=== PATIENT | male | born 2000 | race African-American/Black ===

== ENCOUNTER 2019-03-02 13:43 | Emergency (ER) | payer SELFPAY ==
[~2019-03-02] VITALS: Ht 172.7 cm; Wt 85.7 kg
--- OUTSIDE RECORDS SUMMARY | 2019-03-02 13:46 | XMS REPORT | Clinical Summary ---
Author Author [facility] Organization [facility] Address Unknown Phone Unavailable Care Team Providers Care Office Machine Installer Name Role Phone Asked, No Pcp PCP Unavailable Allergies No Known Allergies Medications End Date Status Medication Sig Dispensed Refills Start Date Active ibuprofen (ADVIL,MOTRIN) Take 1 tablet 20 tablet 0 600 MG tablet (600 mg 9 total) by mouth every 6 (six) hours as needed for mild pain. 11/07/2018 Discontinued divalproex (DEPAKOTE) 500 Take 1,500 mg 0 MG EC tablet by mouth 2 (two) times a day. 11/17/2018 divalproex (DEPAKOTE) 500 Take 3 60 tablet 0 MG EC tablet tablets 9 (1,500 mg total) by mouth 2 (two) times a day for 10 days. Active Problems Not on file Encounters Care Team Description Date Type Specialty Ok Iglesias, Marcell Montes MD Seizure (HCC) (Primary Dx) 11/07/2018 Emergency Emergency Medicine Josh Murray MD Acute bilateral low back pain without sciatica (Primary Dx) 10/17/2018 Emergency Emergency Medicine after 03/01/2018 Social History Date Tobacco Use Types Packs/Day Years Used Current Every Day Smoker Smokeless Tobacco: Never Used Drinks/Week oz/Week Comments Alcohol Use Yes Sex Assigned at Date Recorded Not on file Industry Job Start Date Occupation Not on file Not on file Not on file Travel End Travel History Travel Start No recent travel history available. Last Filed Vital Signs Reading Time Taken Comments Vital Sign 135/70 11/07/2018 8:30 PM CDT Blood Pressure 62 11/07/2018 8:30 PM CDT Pulse 36.7 C (98.1 F) 11/07/2018 6:20 PM CDT Temperature 20 11/07/2018 8:30 PM CDT Respiratory Rate 99% 11/07/2018 8:30 PM CDT Oxygen Saturation - - Inhaled Oxygen Concentration 86.2 kg (190 lb) 10/17/2018 1:28 PM CDT Weight 175.3 cm (5' 9") 11/07/2018 4:55 PM CDT Height 28.06 10/17/2018 1:28 PM CDT Body Mass Index Plan of Treatment Health Maintenance Due Date Last Done Comments INFLUENZA VACCINE 02/01/2019 Procedures Comments Procedure Name Priority Date/Time Associated Diagnosis ECG ED PRELIMINARY Routine 11/07/2018 INTERPRETATION 8:58 PM CDT URINE DRUGS OF ABUSE STAT 11/07/2018 SCREEN 6:38 PM CDT URINALYSIS SCREEN AND STAT 11/07/2018 MICROSCOPY, WITH REFLEX 6:38 PM CDT TO CULTURE URINE CULTURE STAT 11/07/2018 6:38 PM CDT POC GLUCOSE Routine 11/07/2018 5:38 PM CDT ECG 12-LEAD STAT 11/07/2018 5:33 PM CDT ESTIMATED GFR STAT 11/07/2018 5:30 PM CDT CREATINE KINASE, TOTAL STAT 11/07/2018 (CPK) 5:30 PM CDT ALCOHOL LEVEL, BLOOD STAT 11/07/2018 5:30 PM CDT COMPREHENSIVE METABOLIC STAT 11/07/2018 PANEL 5:30 PM CDT HC COMPLETE BLD COUNT STAT 11/07/2018 W/AUTO DIFF 5:30 PM CDT VALPROIC ACID LEVEL STAT 11/07/2018 5:[address] CERVICAL SPINE WO STAT 11/07/2018 CONTRAST 5:[address] HEAD WO CONTRAST STAT 11/07/2018 5:[address] THORACIC SPINE WO STAT 10/17/2018 CONTRAST 3:[address] LUMBAR SPINE WO STAT 10/17/2018 CONTRAST 3:37 PM CDT GRAM STAIN Routine 10/17/2018 3:32 PM CDT URINE CULTURE Routine 10/17/2018 3:32 PM CDT URINALYSIS SCREEN AND Routine 10/17/2018 MICROSCOPY, WITH REFLEX 2:42 PM CDT TO CULTURE XR LUMBAR SPINE 2 OR 3 VW STAT 10/17/2018 2:10 PM CDT after 03/01/2018 Results * ECG ED Preliminary Interpretation - Not an Order (11/07/2018 8:58 PM CDT) Narrative Performed At Ok Iglesias NP-C 11/09/2018 12:56 AM ECG ED Preliminary Interpretation - Not an Order Performed by: Ok Iglesias NP-C Authorized by: Ok Iglesias NP-C ECG reviewed by ED Physician in the absence of a hairspring setter: yes Interpretation: Interpretation: non-specific Rate: ECG rate:62 ECG rate assessment: normal Rhythm: Rhythm: sinus rhythm Rhythm comment:With sinus arrhythmia Ectopy: Ectopy: none QRS: QRS axis:Left QRS intervals:Normal ST segments: ST segments:Normal T waves: T waves: normal * Urinalysis screen and microscopy, with reflex to culture (11/07/2018 6:38 PM CDT) Only the most recent of 2 results within the time period is included. Specimen site Clean catch [facility] Color, UA Straw [facility] Appearance, UA Clear [facility] Specific 1.006 1.001 - 1.035 [place] gravity, [facility] pH, UA 8.0 5.0 - 8.5 [facility] Protein, UA Negative Negative [facility] Glucose, UA Negative Negative [facility] Ketones, UA Trace (A) Negative [facility] Bilirubin, UA Negative Negative [facility] Blood, UA Negative Negative [facility] Nitrite, UA Negative Negative [facility] Urobilinogen, Negative <2.0 [facility] Leukocyte Negative Negative [place] esterase, UA [facility] Epithelial None seen /HPF [place] cells, UA [facility] WBC, UA 0-5 0 - 1 /HPF [facility] RBC, UA 0-5 0 - 5 /HPF [facility] Bacteria, UA None seen None seen [facility] Yeast, UA None seen [facility] Yeast with None seen [place] [facility]phae[facility] Specimen Urine Performing Organization Address City/[facility] Phone Number [facility] [place] [id number] [place] [address] [place] [address] PATHOLOGY AND GENOMIC MEDICINE [address] [place] [address] [facility] * Urine drugs of abuse screen (11/07/2018 6:38 PM CDT) Amphetamine Negative [facility] screen, urine [facility] Methamphetamine Negative [place] screen, urine [facility] Barbiturate Negative [facility] screen, urine [facility] Benzodiazepine Negative [facility] screen, urine [facility] Cocaine screen, Negative [place] urine [facility] Methadone Negative [place] screen, urine [facility] Opiates screen, Negative [facility] urine [facility] Phencyclidine Negative [place] screen, urine [facility] Cannabinoid Positive (A) TORRE screen, urine [facility] Tricyclic Negative [place] screen, urine Comment: [facility] Drug screen minimum [facility] concentration of detectability Amphetamines 1000 ng/mL Methamphetamines 1000 ng/mL Barbiturates 300 ng/mL Benzodiazepines 300 ng/mL Cocaine 300 ng/mL Methadone 300 ng/mL Opiates 300 ng/mL Phencyclidine 25 ng/mL Cannabinoids 50 ng/mL Tricyclics 1000 ng/mL Negative test results indicates presumptive evidence of lack of clinically significant drug concentration in this urine specimen. Positive test results are presumptive evidence of clinically significant drug concentration in this urine specimen. Testing performed for medical purposes only. Specimen Urine Performing Organization Address City/[facility]/Zipcode Phone Number [facility] DEPARTMENT [address] [place] [address] PATHOLOGY AND GENOMIC MEDICINE [address] * Urine culture (11/07/2018 6:38 PM CDT) Only the most recent of 2 results within the time period is included. [facility] Urine culture SEE COMMENTComment: [facility] Bacteriuria screen negative. [facility] Specimen Urine Performing Organization Address [facility] Phone Number [facility] DEPARTMENT [address] [place] [address] PATHOLOGY AND GENOMIC MEDICINE [address] * POC glucose (11/07/2018 5:38 PM CDT) [facility] POC glucose 85 65 - 99 mg/dL [place] Comment: [facility] Meter ID: [id number] [facility] Recorder [employer] Prospecting: Beti Hagen Specimen Performing Organization Address [facility] Phone Number [facility] DEPARTMENT [address] [place] [address] PATHOLOGY AND GENOMIC MEDICINE [address] * ECG 12 lead (11/07/2018 5:33 PM CDT) [facility] Ventricular 62 [facility] rate Atrial rate 62 [facility] WI interval 152 [facility] QRSD interval 106 [facility] QT interval 416 [facility] QTC interval 422 [facility] P axis 1 56 [facility] QRS axis 1 -40 [facility] T wave axis 10 [facility] EKG impression Sinus rhythm with marked sinus [facility] MUSE arrhythmia-Left axis deviation-Abnormal ECG-In automated comparison with ECG of 07-NOV-2017 21:47,-Vent. rate has decreased BY 34 BPM- Specimen Narrative Performed At Performing Organization Address City/[facility] Phone Number [facility] MUSE [address] [place] [address] * Estimated GFR (11/07/2018 5:30 PM CDT) [facility] Estimated GFR >=90 mL/min/1.73 m2 [facility] Comment: [facility] rpretation G1 >=90 Normal or high G2 60-89Mildly decreased [id number] Mildly to moderately decreased [id number] Moderately to severely decreased G4 15-29Severely decreased G5 <15Kidney failure The eGFR was calculated using the Chronic Kidney Disease Epidemiology Collaboration (CKD-EPI) equation. Interpretation is based on recommendations of the National Kidney Foundation-Kidney Disease Outcomes Quality Initiative (NKF-KDOQI) published in 2014. Specimen Plasma specimen Performing Organization Address City/State/Zipcode Phone Number [facility] [id number] [place] [address] [place] [address] PATHOLOGY AND GENOMIC MEDICINE [facility] [id number] [place] [address] [place] [address] [facility] * CBC with platelet and differential (11/07/2018 5:30 PM CDT) [facility] WBC 8.38 4.50 - 11.00 k/uL [facility] RBC 5.22 4.40 - 6.00 m/uL [facility] HGB 15.2 14.0 - 18.0 g/dL [facility] HCT 45.6 41.0 - 51.0 % [facility] MCV 87.4 82.0 - 100.0 fL [facility] MCH 29.1 27.0 - 34.0 pg [facility] MCHC 33.3 31.0 - 37.0 g/dL [facility] RDW - SD 42.5 37.0 - 55.0 fL [facility] MPV 9.9 8.8 - 13.2 fL [facility] Platelet count 333 150 - 400 k/uL [facility] Nucleated RBC 0.00 /100 WBC [facility] Neutrophils 71.8 (H) 39.0 - 69.0 % [facility] Lymphocytes 21.7 (L) 25.0 - 45.0 % [facility] Monocytes 4.4 0.0 - 10.0 % [facility] Eosinophils 1.6 0.0 - 5.0 % [facility] Basophils 0.4 0.0 - 1.0 % [facility] Specimen Blood Performing Organization Address [facility] Phone Number [address] [place] [address] PATHOLOGY AND GENOMIC MEDICINE [address] * Creatine kinase, total (CPK) (11/07/2018 5:30 PM CDT) [facility] Creatine kinase 283 39 - 308 U/L [facility] Specimen Plasma specimen Performing Organization Address [facility] Phone Number [address] [place] [address] PATHOLOGY AND GENOMIC MEDICINE [address] * Alcohol level, blood (11/07/2018 5:30 PM CDT) [facility] Alcohol None Detected mg/dL [facility] Comment: [facility] None Detected Legal Intoxication in [place]80 mg/dL (0.08%) - Whole Blood Toxic Concentration 200 mg/dL (0.2%) Potentially Fatal3 50 - 500 mg/dL (0.35 - 0.5%) Alcohol percent None Detected % [facility] Specimen Plasma specimen Performing Organization Address [facility] Phone Number [address] [place] [address] PATHOLOGY AND GENOMIC MEDICINE [address] * Valproic acid level (11/07/2018 5:30 PM CDT) [facility] Valproic acid 40.0 (L) 50.0 - 100.0 ug/mL [place] Comment: [facility] Therapeutic Range: [facility] 50 - 100 ug/mL Specimen Plasma specimen Performing Organization Address [facility] Phone Number [address] [place] [address] PATHOLOGY AND GENOMIC MEDICINE [address] * Comprehensive metabolic panel (11/07/2018 5:30 PM CDT) Sodium 141 135 - 148 mEq/L [facility] Potassium 4.3 3.5 - 5.0 mEq/L [facility] Chloride 104 98 - 112 mEq/L [facility] CO2 27 24 - 31 mEq/L [facility] Anion gap 10@ANIO 7 - 15 mEq/L [facility] BUN 11 6 - 20 mg/dL [facility] Creatinine 1.20 0.70 - 1.20 mg/dL [facility] Glucose 95 65 - 99 mg/dL [facility] Calcium 10.2 8.3 - 10.2 mg/dL [facility] Protein 7.9 6.3 - 8.3 g/dL [place] Comment: [facility] 4.6-7.0 g/dL 1 week 4.4-7.6 g/dL 7 months-1year 5.1-7.3 g/dL 1-2 years5.6-7 .5 g/dL >3 years6.0-8 .0 g/dL 18-150 6.3-8.3 g/dL Albumin 5.0 3.5 - 5.0 g/dL [facility] A/G ratio 1.7 0.7 - 3.8 [facility] Alkaline 81 40 - 129 U/L [place] phosphatase [facility] AST 23 10 - 50 U/L [facility] ALT 12 5 - 50 U/L [facility] Total bilirubin 0.9 0.0 - 1.2 mg/dL [facility] Specimen Plasma specimen Performing Organization Address City/State/Zipcode Phone Number [facility] [address] [id number] [place] [address] [place] [address] PATHOLOGY AND GENOMIC MEDICINE [address] * CT Cervical Spine Wo Contrast (11/07/2018 5:23 PM CDT) Specimen Narrative Performed At Procedure:CT CERVICAL SPINE WO CONTRAST [facility] REFERRING PHYSICIAN:OK IGLESIAS HISTORY:neck painafter trauma COMPARISON: None TECHNIQUE: Multiple helical axial images of the cervical spine. Additional sagittal and coronal reformat images were acquired. All CT scan performed using radiation dose reduction techniques. Technical factors are evaluated and adjusted to ensure appropriate moderation of exposure. Automated dose management technology is applied to adjust the radiation dose to minimize expose whileachieving a diagnostic quality image. FINDINGS: Sagittal and coronal evaluation of the cervical spine demonstrates normal alignment cervical vertebrae. The vertebral body heights are maintained. The intervertebral disc spaces are maintained. No articular pillar defect is seen. Prevertebral soft tissue is within normal limits. Axial evaluation of the cervical spine demonstrates no significant central canal stenosis or neuroforaminal narrowing. No fracture is seen. No evidence of paraspinal hematoma. IMPRESSION: No CT evidence acute fracture or subluxation of the cervical spine. [facility]-[id number] Procedure Note Interface, Radiology Results Incoming - 11/07/2018 5:30 PM CDT Procedure:CT CERVICAL SPINE WO CONTRAST REFERRING PHYSICIAN:OK IGLESIAS HISTORY:neck pain after trauma COMPARISON: None TECHNIQUE: Multiple helical axial images of the cervical spine. Additional sagittal and coronal reformat images were acquired. All CT scan performed using radiation dose reduction techniques. Technical factors are evaluated and adjusted to ensure appropriate moderation of exposure. Automated dose management technology is applied to adjust the radiation dose to minimize expose while achieving a diagnostic quality image. FINDINGS: Sagittal and coronal evaluation of the cervical spine demonstrates normal alignment cervical vertebrae. The vertebral body heights are maintained. The intervertebral disc spaces are maintained. No articular pillar defect is seen. Prevertebral soft tissue is within normal limits. Axial evaluation of the cervical spine demonstrates no significant central canal stenosis or neuroforaminal narrowing. No fracture is seen. No evidence of paraspinal hematoma. IMPRESSION: No CT evidence acute fracture or subluxation of the cervical spine. [facility]-[id number] Performing Organization Address City/State/Zipcode Phone Number [facility] [address] [place] [address] * CT Head Wo Contrast (11/07/2018 5:21 PM CDT) Specimen Narrative Performed At Procedure:[facility] REFERR[facility]ICIAN:OK IGLESIAS HISTORY: seizure with head injury COMPARISON: None TECHNIQUE: Axial images were obtained of the head without intravenous contrast. All CT scan performed using radiation dose reduction techniques. Technical factors are evaluated and adjusted to ensure appropriate moderation of exposure. Automated dose management technology is applied to adjust the radiation dose to minimize expose whileachieving a diagnostic quality image. FINDINGS: Ramos-white matter differentiation is maintained. The ventricular system is symmetric and midline. There is no evidence of acute hemorrhage. Nointra-axial or extra-axial lesion is seen. The visualized portion of the orbits, paranasal sinuses and mastoid air cells are unremarkable. The calvarium is intact. IMPRESSION: Unremarkable CT head exam with no CT evidence of acute intracranial abnormality or hemorrhage. [facility]-[id number] Procedure Note Interface, Radiology Results Incoming - 11/07/2018 5:25 PM CDT Procedure:CT HEAD WO CONTRAST REFERRING PHYSICIAN:OK IGLESIAS HISTORY: seizure with head injury COMPARISON: None TECHNIQUE: Axial images were obtained of the head without intravenous contrast. All CT scan performed using radiation dose reduction techniques. Technical factors are evaluated and adjusted to ensure appropriate moderation of exposure. Automated dose management technology is applied to adjust the radiation dose to minimize expose while achieving a diagnostic quality image. FINDINGS: Ramos-white matter differentiation is maintained. The ventricular system is symmetric and midline. There is no evidence of acute hemorrhage. No intra-axial or extra-axial lesion is seen. The visualized portion of the orbits, paranasal sinuses and mastoid air cells are unremarkable. The calvarium is intact. IMPRESSION: Unremarkable CT head exam with no CT evidence of acute intracranial abnormality or hemorrhage. [facility]-[id number] Performing Organization Address City/State/Zipcode Phone Number [facility] [address] [place] [address] * CT Thoracic Spine Wo Contrast (10/17/2018 3:37 PM CDT) Specimen Narrative Performed At EXAMINATION:CT THORACIC SPINE WO CONTRAST [facility] CLINICAL HISTORY:pain COMPARISON:None. Technique: Multiple axial CT images of the thoracic spine are obtained without the use of intravenous contrast. Coronal and sagittal 3-D reconstructions are obtained. CT scans are performed using radiation dose reduction techniques.Technical factors are evaluated and adjusted to ensure appropriate moderation of exposure.Automated dose management technology is applied to adjust radiation exposure while achieving a diagnostic quality image. FINDINGS: The visualized lungs are clear. The heart has no pericardial effusion. The thoracic aorta has no aneurysmal dilatation. The visualized portions of the retroperitoneum are unremarkable. The thoracic spine has no acute fracture or subluxation. There are no osseous lesions present. IMPRESSION: 1. There is no acute fracture or subluxation of the thoracic spine. Procedure Note Interface, Radiology Results Incoming - 10/17/2018 3:48 PM CDT EXAMINATION: CT THORACIC SPINE WO CONTRAST CLINICAL HISTORY: pain COMPARISON: None. Technique: Multiple axial CT images of the thoracic spine are obtained without the use of intravenous contrast. Coronal and sagittal 3-D reconstructions are obtained. CT scans are performed using radiation dose reduction techniques. Technical factors are evaluated and adjusted to ensure appropriate moderation of exposure. Automated dose management technology is applied to adjust radiation exposure while achieving a diagnostic quality image. FINDINGS: The visualized lungs are clear. The heart has no pericardial effusion. The thoracic aorta has no aneurysmal dilatation. The visualized portions of the retroperitoneum are unremarkable. The thoracic spine has no acute fracture or subluxation. There are no osseous lesions present. IMPRESSION: 1. There is no acute fracture or subluxation of the thoracic spine. Performing Organization Address City/State/Zipcode Phone Number [facility] [address] [place] [address] * CT Lumbar Spine Wo Contrast (10/17/2018 3:37 PM CDT) Specimen Narrative Performed At EXAMINATION:CT LUMBAR SPINE WO CONTRAST [facility] CLINICAL HISTORY:pain, COMPARISON:None. Technique: Multiple axial CT images of the lumbar spine are obtained without the use of intravenous contrast. Coronal and sagittal 3-D reconstructions are obtained. CT scans are performed using radiation dose reduction techniques.Technical factors are evaluated and adjusted to ensure appropriate moderation of exposure.Automated dose management technology is applied to adjust radiation exposure while achieving a diagnostic quality image. FINDINGS: The visualized portions of the retroperitoneum are unremarkable. The abdominal aorta has no aneurysmal dilatation. There is no free fluid seen within the pelvis. The vertebral bodies maintain normal height and alignment. There is no acute fracture or subluxation. There are no osseous lesions present. IMPRESSION: 1. There is no acute fracture or subluxation. Procedure Note Interface, Radiology Results Incoming - 10/17/2018 3:45 PM CDT EXAMINATION: CT LUMBAR SPINE WO CONTRAST CLINICAL HISTORY: pain, COMPARISON: None. Technique: Multiple axial CT images of the lumbar spine are obtained without the use of intravenous contrast. Coronal and sagittal 3-D reconstructions are obtained. CT scans are performed using radiation dose reduction techniques. Technical factors are evaluated and adjusted to ensure appropriate moderation of exposure. Automated dose management technology is applied to adjust radiation exposure while achieving a diagnostic quality image. FINDINGS: The visualized portions of the retroperitoneum are unremarkable. The abdominal aorta has no aneurysmal dilatation. There is no free fluid seen within the pelvis. The vertebral bodies maintain normal height and alignment. There is no acute fracture or subluxation. There are no osseous lesions present. IMPRESSION: 1. There is no acute fracture or subluxation. Performing Organization Address City/State/Zipcode Phone Number [facility] [address] [place] [address] * Gram stain (10/17/2018 3:32 PM CDT) Gram stain No WBC's [facility] result No organisms seen [facility] Comment: HOSPITAL Specimen Information Specimen Source: Urine Specimen Site: Clean catch Specimen Urine Performing Organization Address City/[facility]/Zipcode Phone Number [facility] DEPARTMENT OF [address] [place] [address] PATHOLOGY AND GENOMIC MEDICINE [place] [address] [place] [id number] [facility] * XR Lumbar Spine 2 Or 3 Vw (10/17/2018 2:10 PM CDT) Specimen Narrative Performed At EXAMINATION: XR LUMBAR SPINE 2 OR 3 VW [facility] CLINICAL HISTORY: Lumbar region back pain COMPARISON:None Findings: There are 5 lumbar vertebral bodies. The lumbar curvature is convex towards the left. There is nonspecific mild inward concavity of the endplates with mild decreased height of the vertebral bodies in the mid to lower lumbar region. There is mild retrolisthesis at L2-3 with spondylosis and mild anterior canal narrowing. There is mild posterior disc space narrowing at L1-2. There is mild dorsal spondylosis at L3-4, L4-5 and L5-S1. IMPRESSION: Degenerative changes. Mild nonspecific inward cavity of some of the endplates. [id number] Procedure Note Interface, Radiology Results Incoming - 10/17/2018 2:21 PM CDT EXAMINATION: XR LUMBAR SPINE 2 OR 3 VW CLINICAL HISTORY: Lumbar region back pain COMPARISON: None Findings: There are 5 lumbar vertebral bodies. The lumbar curvature is convex towards the left. There is nonspecific mild inward concavity of the endplates with mild decreased height of the vertebral bodies in the mid to lower lumbar region. There is mild retrolisthesis at L2-3 with spondylosis and mild anterior canal narrowing. There is mild posterior disc space narrowing at L1-2. There is mild dorsal spondylosis at L3-4, L4-5 and L5-S1. IMPRESSION: Degenerative changes. Mild nonspecific inward cavity of some of the endplates. [facility] [id number] Performing Organization Address City/State/Zipcode Phone Number [phone] [place] [address] after 03/01/2018 Advance Directives For more information, please contact: [phone] Patient Vest Tailor Explanation Type Date Recorded Advance Directives, 11/07/2017 10:24 PM Living Will and Medical Power of Caregiver Assisted Living
[2019-03-02] MEDS ORDERED: VALPROATE SOD INJ 500 MG in SODIUM CHLORIDE 0.9% 100 ML 100 ML IV SCH (14:15)
[2019-03-02 14:24] LABS: BASOPHILS % 0.3 % (0.0-1.0); EOSINOPHILS # (AUTO) 0.1 (0.0-0.4); EOSINOPHILS % 1.4 % (0.0-6.0); HEMATOCRIT 38.8 % (38.2-49.6); HEMOGLOBIN 13.3 g/dL (14.0-18.0); LYMPHOCYTES # (AUTO) 1.3 (1.0-3.2); LYMPHOCYTES % 15.4 % (18.0-39.1); MEAN CORPUSCULAR HEMOGLOBIN 29.7 pg (28-32); MEAN CORPUSCULAR HGB CONC 34.3 g/dL (31-35); MEAN CORPUSCULAR VOLUME 86.6 fL (81-99); MONOCYTES # (AUTO) 0.4 (0.2-0.8); MONOCYTES % 4.6 % (4.4-11.3); NEUTROPHILS # (AUTO) 6.8 (2.1-6.9); NEUTROPHILS % 78.1 % (38.7-80.0); PLATELET COUNT 273 x10e3/uL (140-360); RED BLOOD COUNT 4.48 x10e6/uL (4.3-5.7); RED CELL DISTRIBUTION WIDTH 13.2 % (11.7-14.4)
[2019-03-02 14:33] LABS: ANION GAP 13.3 mmol/L (8-16); BLOOD UREA NITROGEN 10 mg/dL (7-26); BUN/CREATININE RATIO 8 (6-25); CALCIUM 9.6 mg/dL (8.4-10.2); CARBON DIOXIDE 26 mmol/L (22-29); CHLORIDE 104 mmol/L (98-107); EST GLOMERULAR FILTRATION RATE > 60 ML/MIN (60-); GLUCOSE 93 mg/dL (74-118); POTASSIUM 4.3 mmol/L (3.5-5.1); SODIUM 139 mmol/L (136-145)
[2019-03-02] MEDS ORDERED: SODIUM CHLORIDE 0.9% 1000ML 1,000 ML IV SCH (15:00)
[2019-03-02] MEDS ORDERED: DIVALPROEX SOD500 M1 PO (15:55)
--- NOTE | 2019-03-02 15:57 | Diagnostic Imaging Report ---
History: Seizure, fall Comparison studies:None Technique: Axial images were obtained from the brain, face and cervical spine. Coronal and sagittal reconstructions obtained from the axial data. Intravenous contrast: None Dose modulation, iterative reconstruction, and/or weight based adjustment of the mA/kV was utilized to reduce the radiation dose to as low as reasonably achievable. Findings: Head CT: Scalp/skull: No abnormalities. No fractures, blastic or lytic lesions. Extra-axial spaces: No masses. No fluid collections. Brain sulci: Appropriate for age. Ventricles: Normal in size and configuration. No hydrocephalus. Parenchyma: No abnormal densities. No masses, hemorrhage, acute or chronic cortical vascular insults. Sellar/suprasellar region: No abnormalities Craniocervical junction: Patent foramen magnum. No Chiari one malformation. Maxillofacial CT: Soft tissues: No abnormalities.. Bones: No acute fractures. Flattening of the nasal bones. . Orbits: No abnormalities. Paranasal sinuses: Clear. Cervical spine CT: Fractures: None. Soft tissues: No gross abnormalities. Atlantoaxial articulation: Intact. Alignment: Straightening of the normal lordosis. No scoliosis. Cervicomedullary junction: No abnormalities. The foramen magnum is patent. Vertebrae: No infection or neoplasm. Degenerative changes: None. Incidental findings: No. Impression: Head CT: 1. No abnormality. Facial CT: 1. No acute facial abnormality. 2. Periapical lucency at dentition #9 and 10 with anterior cortical break related to periodontal disease. Cervical spine CT: 1. No acute cervical abnormalities. 2. Cannot exclude ligament, spinal cord and or vascular abnormalities on the basis of this examination. Signed by: DR William Mejia M.D. on 03/02/2019 3:54 PM
[2019-03-02 17:51] VITALS: BP 132/70
== END 2019-03-02 17:13 | disposition home or self-care (01) ==
LOC: ER 13:43
DX: G40.909 Epilepsy, unspecified, not intractable, without status epilepticus (principal); S00.83XA Contusion of other part of head, initial encounter; S00.03XA Contusion of scalp, initial encounter; W01.0XXA Fall on same level from slipping, tripping and stumbling without subsequent striking against object, initial encounter; Y92.008 Other place in unspecified non-institutional (private) residence as the place of occurrence of the external cause
CPT/HCPCS: 36415; 70450; 70486; 72125; 80048; 83735; 85025; 99284; J7030